=== PATIENT | female | born 1995 | race African-American/Black ===

== ENCOUNTER 2019-12-24 12:42 | Emergency (ER) | payer OTHER ==
[~2019-12-24] VITALS: Ht 162.6 cm; Wt 99.8 kg
[2019-12-24 13:12] LABS: URINE BILIRUBIN NEGATIVE (Negative); URINE BLOOD NEGATIVE (Negative); URINE CLARITY CLEAR; URINE COLOR YELLOW; URINE GLUCOSE-RANDOM* NEGATIVE (Negative); URINE KETONES NEGATIVE (Negative); URINE NITRITE-REFLEX NEGATIVE (Negative); URINE PROTEIN (DIPSTICK) NEGATIVE (Negative); URINE SPECIFIC GRAVITY >= 1.030 (1.005-1.035); URINE UROBILINOGEN 0.2 E.U./dl (0.2-1.0)
[2019-12-24 13:13] LABS: URINE LEUKOCYTES-REFLEX 1+ (Negative)
[2019-12-24 13:27] LABS: CASTS None Seen /LPF (None Seen); SQUAMOUS >10 Many /LPF (0-3); URINE RBC None Seen /HPF (0-2); URINE WBC-REFLEX 6-15 Few /HPF (0-5)
[2019-12-24 13:28] LABS: CRYSTALS None Seen /LPF (None Seen)
[2019-12-24 13:44] LABS: ABSOLUTE NEUTROPHILS 13.5 thou/uL (1.4-8.2); BASOPHILS 0.4 % (0.0-2.0); EOSINOPHILS 0.1 % (0.0-3.0); HEMATOCRIT 37.6 % (37.0-47.0); LYMPHOCYTES 11.3 % (24.0-44.0); MCH 27.5 pg (26.0-34.0); MCHC 31.8 g/dL (28.0-37.0); MCV 86.3 fL (80.0-100.0); MONOCYTES 7.3 % (1.0-8.0); PLATELET COUNT 323 thou/uL (150-400); POLYS 80.9 % (36.0-66.0); RBC 4.35 mil/uL (4.20-5.00); RDW 14.8 % (10.5-14.5); WBC 16.7 thou/uL (4.0-11.0)
[2019-12-24 13:49] LABS: CALCIUM 8.6 mg/dL (8.5-10.1); CREATININE 0.9 mg/dL (0.6-1.0)
[2019-12-24 13:54] LABS: ALBUMIN 3.6 g/dL (3.4-5.0); TOTAL BILIRUBIN 0.3 mg/dL (0.2-1.0); TOTAL PROTEIN 7.7 g/dL (6.4-8.2)
[2019-12-24] MEDS ORDERED: MACROBID 100 M100 M1 PO (16:47)
[2019-12-24] MEDS ORDERED: MIRALAX119 GM PO (16:47)
[2019-12-24] MEDS ORDERED: ZOFRAN ODT4 MG PO (16:47)
[2019-12-24] MEDS ORDERED: NAPROSYN500 MG PO (16:47)
[2019-12-24 17:28] VITALS: BP 110/50
== END 2019-12-24 17:23 | disposition home or self-care (01) ==
LOC: ER 12:42
PROVIDERS: Emergency Medicine
DX: N39.0 Urinary tract infection, site not specified (principal)